=== PATIENT | female | born 1960 | race African-American/Black ===

== ENCOUNTER 2022-03-31 14:22 | Emergency (ER) | payer MEDICARE, MEDICAID, OTHER ==
[~2022-03-31] VITALS: Ht 172.7 cm; Wt 104.0 kg
[2022-03-31] MEDS ORDERED: ACETAMINOPHEN 500 MG TAB PO ONE (16:30)
[2022-03-31 16:53] VITALS: BP 195/89
[2022-03-31] MEDS ORDERED: IBUP800T27 PO (17:21)
[2022-03-31] MEDS ORDERED: METH750T22 PO (17:21)
== END 2022-03-31 17:43 | disposition home or self-care (01) ==
LOC: ER 14:22
DX: S46.912A Strain of unspecified muscle, fascia and tendon at shoulder and upper arm level, left arm, initial encounter (principal); Z79.1 Long term (current) use of non-steroidal anti-inflammatories (NSAID); Z79.899 Other long term (current) drug therapy; V43.52XA Car driver injured in collision with other type car in traffic accident, initial encounter; Y93.89 Activity, other specified; Y92.410 Unspecified street and highway as the place of occurrence of the external cause; Y99.8 Other external cause status
CPT/HCPCS: 73020; 93005